=== PATIENT | male | born 1950 | race African-American/Black ===

== ENCOUNTER 2018-09-18 08:20 | Day surgery (SDC) | payer BC, OTHER | END 2018-09-18 13:55 | disposition home or self-care (01) | LOC: JASU-SURG 08:20 ==

== ENCOUNTER 2018-10-02 07:55 | Day surgery (SDC) | payer BC, OTHER | END 2018-10-02 12:40 | disposition home or self-care (01) | LOC: JASU-SURG 07:55 ==

== ENCOUNTER 2020-06-08 17:58 | Inpatient (IN) | payer BC, OTHER ==
[2020-06-08] MEDS ORDERED: DEXAMETHASONE SOD PHOSPHATE 10 MG/1 ML VIAL IVPUSH ONE (19:36)
[2020-06-08] MEDS ORDERED: DEXAMETHASONE SOD PHOSPHATE 4 MG/1 ML VIAL ONE (20:49)
[2020-06-08 21:00] LABS: VENOUS BASE EXCESS 3.9 mmol/L (-2-2); VENOUS O2 SATURATION 50.9 % (70-80); VENOUS PCO2 43.6 mmHg (38-52); VENOUS PH 7.434 (7.310-7.410)
[2020-06-08 21:06] LABS: BASO % 0.4 % (0-2.0); CHLORIDE 98 mmol/L (98-107); EOS % 0.9 % (0-4.5); HEMATOCRIT 26.2 % (35.4-49); HEMOGLOBIN 8.8 GM/dL (11.7-16.9); MCH 28.8 pg (25.7-33.7); MCHC 33.8 g/dl (32.0-35.9); MEAN CELL VOLUME 85.3 fl (80-96); MEAN PLT VOLUME 8.6 fl (7.5-11.1); MONO % 8.3 % (3.8-10.2); NEUT % 77.4 % (42.8-82.8); PLATELET COUNT 479 K/MM3 (134-434); POTASSIUM 4.5 mmol/L (3.5-5.1); RBC 3.07 M/mm3 (4.00-5.60); RDW 15.2 % (11.9-15.9); SODIUM 135 mmol/L (136-145); WHITE BLOOD COUNT 7.8 K/mm3 (4.0-10.0)
[2020-06-08 21:08] LABS: CALCIUM 8.6 mg/dL (8.5-10.1)
[2020-06-08 21:10] LABS: ALBUMIN 2.8 g/dl (3.4-5.0); ANION GAP 10 MMOL/L (8-16); BLOOD UREA NITROGEN 17.7 mg/dL (7-18); CO2 27 mmol/L (21-32)
[2020-06-08 21:11] LABS: GLUCOSE,RANDOM 144 mg/dL (74-106)
[2020-06-08 21:12] LABS: BILIRUBIN,DIRECT 0.3 mg/dL (0.0-0.2); CREATININE 1.4 mg/dL (0.55-1.3); INR 1.21 (0.83-1.09); PROTHROMBIN TIME (PATIENT) 14.6 SEC (9.7-13.0); SGOT/AST 92 U/L (15-37); SGPT/ALT 94 U/L (13-61)
[2020-06-08 21:13] LABS: LDH 451 U/L (87-246)
[2020-06-08 21:15] LABS: ACTIVATED PTT 43.2 SECONDS (25.2-36.5); ALK PHOS 107 U/L (45-117); BILIRUBIN,TOTAL 0.6 mg/dL (0.2-1)
[2020-06-08] MEDS ORDERED: HEPARIN NA (PORCINE) 5,000 UNITS/ML 1ML VIAL ONE (23:00)
[2020-06-08] MEDS ORDERED: HEPARIN NA (PORCINE) 5,000 UNITS/ML 1ML VIAL SQ SCH (23:00)
[2020-06-08] MEDS ORDERED: FUROSEMIDE 40 MG/4 ML INJECTABLE VIAL IVPUSH ONE (23:04)
[2020-06-08] MEDS ORDERED: ALBUTEROL SO4 HFA INHALER IH PRN (23:09)
[2020-06-08] MEDS ORDERED: GABAPENTIN 100 MG CAPSULE PO PRN (23:16)
[2020-06-08] MEDS ORDERED: FUROSEMIDE 40 MG/4 ML INJECTABLE VIAL ONE (23:51)
[2020-06-09] MEDS ORDERED: APIXABAN 2.5 MG TABLET PO SCH (01:45)
[2020-06-09] MEDS ORDERED: hydrALAZINE HCL 50 MG TABLET (FP) PO SCH (06:00)
[2020-06-09] MEDS: INSULIN SLIDING SCALE (NOVOLOG) 1 VIAL SQ SCH ×4 (06:15→21:33)
[2020-06-09] MEDS: FUROSEMIDE 40 MG TABLET (FP) PO SCH ×2 (06:15→13:24)
[2020-06-09] MEDS ORDERED: PT OWN MED DRAWER 7, Y5N ONE (09:58)
[2020-06-09] MEDS ORDERED: AZTREONAM 1 GM VIAL (RESTRICTED TO ID) IVPB SCH (10:00)
[2020-06-09] MEDS ORDERED: DOXYCYCLINE INJECTION 100 MG in DEXTROSE 5%-WATER - 100 ML IVPB SCH (10:00)
[2020-06-09] MEDS ORDERED: AZTREONAM 2 GM in DEXTROSE 5%-WATER 100 ML IVPB SCH (10:00)
[2020-06-09] MEDS ORDERED: ASCORBIC ACID 500 MG TABLET (FP) PO SCH (10:00)
[2020-06-09] MEDS ORDERED: METOLAZONE 2.5 MG TABLET (FP) PO SCH (10:00)
[2020-06-09] MEDS: APIXABAN 2.5 MG TABLET PO SCH ×2 (10:10→21:25)
[2020-06-09] MEDS: ZINC SULFATE 220 MG CAPSULE (FP) PO SCH (10:10)
[2020-06-09] MEDS: ASPIRIN COATED 81 MG TABLET.EC PO SCH (10:10)
[2020-06-09] MEDS: LOSARTAN POTASSIUM 25 MG TABLET PO SCH (10:10)
[2020-06-09] MEDS: CHOLECALCIFEROL (VIT D3) 1,000 UNIT (25 MCG) TABLET PO SCH (10:11)
[2020-06-09 11:04] LABS: BASO % 0.6 % (0-2.0); HEMATOCRIT 29.7 % (35.4-49); HEMOGLOBIN 10.2 GM/dL (11.7-16.9); LYMPH % 11.2 % (8-40); MCH 28.9 pg (25.7-33.7); MCHC 34.2 g/dl (32.0-35.9); MEAN CELL VOLUME 84.6 fl (80-96); MEAN PLT VOLUME 8.1 fl (7.5-11.1); NEUT % 82.2 % (42.8-82.8); PLATELET COUNT 558 K/MM3 (134-434); RBC 3.51 M/mm3 (4.00-5.60); RDW 15.4 % (11.9-15.9); RETICULOCYTES 0.91 % (0.5-1.5); WHITE BLOOD COUNT 5.7 K/mm3 (4.0-10.0)
[2020-06-09] MEDS ORDERED: FAMOTIDINE 20 MG TABLET PO SCH (11:15)
[2020-06-09 11:18] LABS: POTASSIUM 4.4 mmol/L (3.5-5.1)
[2020-06-09 11:21] LABS: INR 1.47 (0.83-1.09); PROTHROMBIN TIME (PATIENT) 17.9 SEC (9.7-13.0)
[2020-06-09 11:25] LABS: ALBUMIN 2.8 g/dl (3.4-5.0)
[2020-06-09 11:26] LABS: BLOOD UREA NITROGEN 22.5 mg/dL (7-18); MAGNESIUM 1.7 mg/dL (1.8-2.4)
[2020-06-09 11:28] LABS: CREATININE 1.4 mg/dL (0.55-1.3); PHOSPHOROUS 3.8 mg/dL (2.5-4.9)
[2020-06-09 11:29] LABS: BILIRUBIN,TOTAL 0.6 mg/dL (0.2-1); TOT PROT 7.5 g/dl (6.4-8.2)
[2020-06-09] MEDS: DEXAMETHASONE SOD PHOSPHATE 4 MG/1 ML VIAL IVPUSH SCH (13:23)
[2020-06-09] MEDS ORDERED: MAGNESIUM SULF 50% (8.12 MEQ/2 ML-1 GM VIAL) IVPB ONE (13:28)
[2020-06-09] MEDS ORDERED: IRON SUCROSE INJECTION 200 MG in SODIUM CHLORIDE 90 ML IVPB ONE (13:29)
[2020-06-09] MEDS: PANTOPRAZOLE SODIUM 40 MG VIAL IVPUSH SCH (14:01)
[2020-06-09] MEDS: ASCORBIC ACID 500 MG TABLET (FP) PO SCH (21:25)
[2020-06-09] MEDS ORDERED: ATORVASTATIN CA 10 MG TABLET (FP) PO SCH (22:00)
[2020-06-09 23:26] LABS: EPI CELLS 3 /uL (0-25.1); HYALINE CASTS 0 /uL (0-3.1); URINE APPEARANCE CLEAR; URINE BACTERIA 190 /uL (0-1359); URINE BILIRUBIN NEGATIVE (NEGATIVE); URINE COLOR YELLOW; URINE GLUCOSE (UA) NEGATIVE (NEGATIVE); URINE KETONE NEGATIVE (NEGATIVE); URINE LEUK ESTERASE NEGATIVE (NEGATIVE); URINE NITRITE NEGATIVE (NEGATIVE); URINE PROTEIN 1+ (NEGATIVE); URINE RBC 5 /uL (0-23.9); URINE WBC 8 /uL (0-25.8)
[2020-06-10] MEDS: FUROSEMIDE 40 MG TABLET (FP) PO SCH ×2 (06:19→13:59)
[2020-06-10] MEDS: INSULIN SLIDING SCALE (NOVOLOG) 1 VIAL SQ SCH ×4 (06:28→21:36)
[2020-06-10 09:25] LABS: BASO % 0.2 % (0-2.0); HEMATOCRIT 29.9 % (35.4-49); HEMOGLOBIN 10.1 GM/dL (11.7-16.9); LYMPH % 17.1 % (8-40); MCH 28.6 pg (25.7-33.7); MCHC 33.7 g/dl (32.0-35.9); MEAN PLT VOLUME 8.1 fl (7.5-11.1); MONO % 8.1 % (3.8-10.2); NEUT % 74.6 % (42.8-82.8); PLATELET COUNT 682 K/MM3 (134-434); RBC 3.52 M/mm3 (4.00-5.60); RDW 15.2 % (11.9-15.9); WHITE BLOOD COUNT 8.3 K/mm3 (4.0-10.0)
[2020-06-10] MEDS: ASCORBIC ACID 500 MG TABLET (FP) PO SCH ×2 (09:31→21:37)
[2020-06-10] MEDS: LOSARTAN POTASSIUM 25 MG TABLET PO SCH (09:31)
[2020-06-10] MEDS: APIXABAN 2.5 MG TABLET PO SCH ×2 (09:32→21:37)
[2020-06-10] MEDS: DEXAMETHASONE SOD PHOSPHATE 4 MG/1 ML VIAL IVPUSH SCH (09:32)
[2020-06-10] MEDS: ASPIRIN COATED 81 MG TABLET.EC PO SCH (09:32)
[2020-06-10] MEDS: PANTOPRAZOLE SODIUM 40 MG VIAL IVPUSH SCH (09:32)
[2020-06-10] MEDS: CHOLECALCIFEROL (VIT D3) 1,000 UNIT (25 MCG) TABLET PO SCH (09:32)
[2020-06-10] MEDS: ZINC SULFATE 220 MG CAPSULE (FP) PO SCH (09:32)
[2020-06-10 09:37] LABS: POTASSIUM 3.7 mmol/L (3.5-5.1)
[2020-06-10 09:47] LABS: ALBUMIN 2.8 g/dl (3.4-5.0); BLOOD UREA NITROGEN 21.9 mg/dL (7-18); MAGNESIUM 1.9 mg/dL (1.8-2.4)
[2020-06-10 09:50] LABS: CREATININE 1.3 mg/dL (0.55-1.3); PHOSPHOROUS 3.4 mg/dL (2.5-4.9)
[2020-06-10 09:51] LABS: BILIRUBIN,TOTAL 0.4 mg/dL (0.2-1); TOT PROT 7.4 g/dl (6.4-8.2)
[2020-06-10] MEDS ORDERED: AZTREONAM 2 GM in DEXTROSE 5%-WATER 100 ML IVPB SCH (10:00)
[2020-06-10] MEDS ORDERED: PT OWN MED DRAWER 7, Y5N ONE (10:19)
[2020-06-10 15:52] VITALS: BMI 28.8
[2020-06-11] MEDS: FUROSEMIDE 40 MG TABLET (FP) PO SCH ×2 (05:34→13:52)
[2020-06-11] MEDS: INSULIN SLIDING SCALE (NOVOLOG) 1 VIAL SQ SCH ×4 (06:14→21:35)
[2020-06-11] MEDS: LOSARTAN POTASSIUM 25 MG TABLET PO SCH (09:03)
[2020-06-11] MEDS: ASCORBIC ACID 500 MG TABLET (FP) PO SCH ×2 (09:03→21:35)
[2020-06-11] MEDS: APIXABAN 2.5 MG TABLET PO SCH ×2 (09:03→21:35)
[2020-06-11] MEDS: ASPIRIN COATED 81 MG TABLET.EC PO SCH (09:03)
[2020-06-11] MEDS: ZINC SULFATE 220 MG CAPSULE (FP) PO SCH (09:03)
[2020-06-11] MEDS: CHOLECALCIFEROL (VIT D3) 1,000 UNIT (25 MCG) TABLET PO SCH (09:04)
[2020-06-11 09:19] LABS: BASO % 0.3 % (0-2.0); EOS % 0.4 % (0-4.5); HEMATOCRIT 28.8 % (35.4-49); HEMOGLOBIN 9.6 GM/dL (11.7-16.9); LYMPH % 18.8 % (8-40); MCH 28.4 pg (25.7-33.7); MCHC 33.2 g/dl (32.0-35.9); MEAN CELL VOLUME 85.6 fl (80-96); MONO % 8.6 % (3.8-10.2); NEUT % 71.9 % (42.8-82.8); PLATELET COUNT 619 K/MM3 (134-434); RBC 3.37 M/mm3 (4.00-5.60); RDW 15.2 % (11.9-15.9); WHITE BLOOD COUNT 7.4 K/mm3 (4.0-10.0)
[2020-06-11 09:54] LABS: POTASSIUM 4.1 mmol/L (3.5-5.1)
[2020-06-11 10:48] LABS: ALBUMIN 2.6 g/dl (3.4-5.0)
[2020-06-11 10:49] LABS: MAGNESIUM 1.8 mg/dL (1.8-2.4)
[2020-06-11 10:52] LABS: CREATININE 1.3 mg/dL (0.55-1.3)
[2020-06-11 10:53] LABS: BILIRUBIN,TOTAL 0.5 mg/dL (0.2-1); TOT PROT 6.9 g/dl (6.4-8.2)
[2020-06-11] MEDS: DEXAMETHASONE 4 MG TABLET (FP) PO SCH (12:02)
[2020-06-11] MEDS: SENNOSIDES 8.6MG TABLET (FP) PO SCH ×2 (12:03→21:35)
[2020-06-11] MEDS: FERROUS SO4 325 MG TABLET (FP) PO SCH (12:03)
[2020-06-11] MEDS: DOCUSATE SODIUM 100 MG CAPSULE (FP) PO SCH ×2 (13:52→21:35)
[2020-06-11] MEDS ORDERED: INSULIN (NOVOLOG) ASPART 100 UNITS/ML 10ML VIAL ONE (21:10)
[2020-06-12] MEDS: DOCUSATE SODIUM 100 MG CAPSULE (FP) PO SCH ×4 (06:30→22:15)
[2020-06-12] MEDS: FUROSEMIDE 40 MG TABLET (FP) PO SCH ×2 (06:30→14:47)
[2020-06-12] MEDS: INSULIN SLIDING SCALE (NOVOLOG) 1 VIAL SQ SCH ×4 (06:30→22:12)
[2020-06-12 09:16] LABS: BASO % 0.3 % (0-2.0); EOS % 0.2 % (0-4.5); HEMATOCRIT 28.2 % (35.4-49); HEMOGLOBIN 9.6 GM/dL (11.7-16.9); LYMPH % 20.8 % (8-40); MCH 28.9 pg (25.7-33.7); MCHC 33.9 g/dl (32.0-35.9); MEAN CELL VOLUME 85.2 fl (80-96); MEAN PLT VOLUME 8.1 fl (7.5-11.1); MONO % 8.5 % (3.8-10.2); NEUT % 70.2 % (42.8-82.8); PLATELET COUNT 617 K/MM3 (134-434); RBC 3.31 M/mm3 (4.00-5.60); RDW 15.4 % (11.9-15.9); WHITE BLOOD COUNT 8.4 K/mm3 (4.0-10.0)
[2020-06-12 09:33] LABS: POTASSIUM 4.2 mmol/L (3.5-5.1)
[2020-06-12 09:38] LABS: ALBUMIN 2.5 g/dl (3.4-5.0)
[2020-06-12 09:39] LABS: BLOOD UREA NITROGEN 25.2 mg/dL (7-18); MAGNESIUM 1.7 mg/dL (1.8-2.4)
[2020-06-12 09:42] LABS: CREATININE 1.2 mg/dL (0.55-1.3); PHOSPHOROUS 3.7 mg/dL (2.5-4.9)
[2020-06-12 09:43] LABS: BILIRUBIN,TOTAL 0.3 mg/dL (0.2-1); TOT PROT 6.7 g/dl (6.4-8.2)
[2020-06-12 09:47] LABS: CALCIUM 9.2 mg/dL (8.5-10.1)
[2020-06-12] MEDS: APIXABAN 2.5 MG TABLET PO SCH ×2 (10:23→22:12)
[2020-06-12] MEDS: FERROUS SO4 325 MG TABLET (FP) PO SCH (10:23)
[2020-06-12] MEDS: DEXAMETHASONE 4 MG TABLET (FP) PO SCH (10:24)
[2020-06-12] MEDS: CHOLECALCIFEROL (VIT D3) 1,000 UNIT (25 MCG) TABLET PO SCH (10:24)
[2020-06-12] MEDS: ASCORBIC ACID 500 MG TABLET (FP) PO SCH ×2 (10:24→22:12)
[2020-06-12] MEDS: LOSARTAN POTASSIUM 25 MG TABLET PO SCH (10:24)
[2020-06-12] MEDS: ASPIRIN COATED 81 MG TABLET.EC PO SCH (10:24)
[2020-06-12] MEDS: ZINC SULFATE 220 MG CAPSULE (FP) PO SCH (10:24)
[2020-06-12] MEDS: SENNOSIDES 8.6MG TABLET (FP) PO SCH ×2 (10:38→22:16)
[2020-06-12] MEDS ORDERED: MAGNESIUM SULF 50% (8.12 MEQ/2 ML-1 GM VIAL) IVPB ONE (11:04)
[2020-06-13] MEDS: INSULIN SLIDING SCALE (NOVOLOG) 1 VIAL SQ SCH ×2 (06:26→12:42)
[2020-06-13] MEDS: DOCUSATE SODIUM 100 MG CAPSULE (FP) PO SCH ×2 (06:26→15:07)
[2020-06-13] MEDS: FUROSEMIDE 40 MG TABLET (FP) PO SCH ×2 (06:27→15:07)
[2020-06-13] MEDS: LOSARTAN POTASSIUM 25 MG TABLET PO SCH (09:42)
[2020-06-13] MEDS: ASPIRIN COATED 81 MG TABLET.EC PO SCH (09:42)
[2020-06-13] MEDS: APIXABAN 2.5 MG TABLET PO SCH (09:42)
[2020-06-13] MEDS: SENNOSIDES 8.6MG TABLET (FP) PO SCH ×2 (09:42→10:23)
[2020-06-13] MEDS: ASCORBIC ACID 500 MG TABLET (FP) PO SCH (09:42)
[2020-06-13] MEDS: ZINC SULFATE 220 MG CAPSULE (FP) PO SCH (09:42)
[2020-06-13] MEDS: FERROUS SO4 325 MG TABLET (FP) PO SCH (09:42)
[2020-06-13] MEDS: DEXAMETHASONE 4 MG TABLET (FP) PO SCH (09:42)
[2020-06-13] MEDS: CHOLECALCIFEROL (VIT D3) 1,000 UNIT (25 MCG) TABLET PO SCH (09:43)
[2020-06-13 15:36] VITALS: BP 121/81; PULSE 94; TEMP 98.2
== END 2020-06-13 15:44 | disposition home or self-care (01) | DRG 177 ==
LOC: JER 17:58 → JERBED 21:46 → J5S 06-09 00:14
PROVIDERS: ADMIT Internal Medicine
DX: U07.1 COVID-19 (principal); J12.82 Pneumonia due to coronavirus disease 2019; J96.01 Acute respiratory failure with hypoxia; I13.0 Hypertensive heart and chronic kidney disease with heart failure and stage 1 through stage 4 chronic kidney disease, or unspecified chronic kidney disease; I50.22 Chronic systolic (congestive) heart failure; E11.22 Type 2 diabetes mellitus with diabetic chronic kidney disease; E11.40 Type 2 diabetes mellitus with diabetic neuropathy, unspecified; E78.5 Hyperlipidemia, unspecified; N40.0 Benign prostatic hyperplasia without lower urinary tract symptoms; I48.91 Unspecified atrial fibrillation; N18.31 Chronic kidney disease, stage 3a; R74.01 Elevation of levels of liver transaminase levels; Z87.891 Personal history of nicotine dependence
CPT/HCPCS: 36415; 71045-TC-FY; 80053; 81003; 82248; 82272; 82550; 82553; 82607; 82728; 82746; 82803; 82962; 83036; 83540; 83550; 83605; 83615; 83735; 83880; 84100; 84466; 84484; 85025; 85045; 85379; 85610; 85730; 86140; 86769; 87040; 87070; 87086; 87205; 87804; 87899; 93005; 93010; 94010; 94761; 97116-GP; 97161-GP; 99285-25; C9803; J1100; J1644; J1756; U0003

== ENCOUNTER 2021-08-28 22:07 | Observation (INO) | payer BC ==
[2021-08-28 22:22] VITALS: BMI 32.3
[2021-08-28 22:58] LABS: BASO % 0.8 % (0-2.0); EOS % 2.3 % (0-4.5); HEMATOCRIT 29.4 % (35.4-49); HEMOGLOBIN 9.7 GM/dL (11.7-16.9); LYMPH % 28.2 % (8-40); MCH 28.5 pg (25.7-33.7); MCHC 33.1 g/dl (32.0-35.9); MEAN CELL VOLUME 86.1 fl (80-96); MEAN PLT VOLUME 8.1 fl (7.5-11.1); MONO % 9.2 % (3.8-10.2); NEUT % 59.5 % (42.8-82.8); PLATELET COUNT 210 10^3/uL (134-434); RBC 3.41 M/mm3 (4.00-5.60); RDW 15.5 % (11.9-15.9); WHITE BLOOD COUNT 4.2 K/mm3 (4.0-10.0)
[2021-08-28 23:22] LABS: CALCIUM 9.4 mg/dL (8.5-10.1)
[2021-08-28 23:23] LABS: ALBUMIN 3.6 g/dl (3.4-5.0); BLOOD UREA NITROGEN 18.4 mg/dL (7-18)
[2021-08-28 23:26] LABS: CREATININE 1.4 mg/dL (0.55-1.3)
[2021-08-28 23:28] LABS: BILIRUBIN,TOTAL 0.2 mg/dL (0.2-1); TOT PROT 6.9 g/dl (6.4-8.2)
[2021-08-29 00:22] LABS: EPI CELLS 3 /uL (0-25.1); HYALINE CASTS 0 /uL (0-3.1); URINE APPEARANCE CLEAR; URINE BACTERIA 0 /uL (0-1359); URINE BILIRUBIN NEGATIVE (NEGATIVE); URINE COLOR YELLOW; URINE GLUCOSE (UA) NEGATIVE (NEGATIVE); URINE KETONE TRACE (NEGATIVE); URINE LEUK ESTERASE NEGATIVE (NEGATIVE); URINE NITRITE NEGATIVE (NEGATIVE); URINE PROTEIN 1+ (NEGATIVE); URINE RBC 4 /uL (0-23.9); URINE WBC 1 /uL (0-25.8)
[2021-08-29] MEDS ORDERED: SODIUM CHLORIDE 0.9% 500 ML INFUS.BAG IV ONE (00:49)
[2021-08-29] MEDS ORDERED: ACETAMINOPHEN 325 MG TABLET (FP) PO PRN (03:01)
[2021-08-29] MEDS ORDERED: POLYETHYLENE GLYCOL (HEALTHYLAX) 3350 17 GM PACKET PO PRN (03:01)
[2021-08-29] MEDS ORDERED: MELATONIN 5 MG TABLETS PO PRN (03:07)
[2021-08-29] MEDS: INSULIN SLIDING SCALE (NOVOLOG) 1 VIAL SQ SCH ×2 (07:03→11:26)
[2021-08-29 09:33] LABS: BLOOD UREA NITROGEN 17.2 mg/dL (7-18); CALCIUM 9.1 mg/dL (8.5-10.1)
[2021-08-29 09:37] LABS: CREATININE 1.2 mg/dL (0.55-1.3)
[2021-08-29] MEDS ORDERED: PATIENT'S OWN MEDICATION (NON-FORMULARY) (Mirabegron [Myrbetriq] 50 MG Tab.Er.24h) PO SCH (10:00)
[2021-08-29] MEDS ORDERED: TAMSULOSIN HCL 0.4 MG CAP PO SCH (10:00)
[2021-08-29] MEDS ORDERED: CARVEDILOL 3.125 MG TABLET (FP) PO SCH (10:00)
[2021-08-29] MEDS ORDERED: FUROSEMIDE 40 MG TABLET (FP) PO SCH (10:00)
[2021-08-29] MEDS ORDERED: LOSARTAN POTASSIUM 50 MG TABLET PO SCH (10:00)
[2021-08-29] MEDS ORDERED: MAGNESIUM SULF 50% (8.12 MEQ/2 ML-1 GM VIAL) IVPB ONE (10:25)
[2021-08-29] MEDS ORDERED: amLODIPine BESYLATE 5 MG TABLET (FP) PO SCH (10:30)
[2021-08-29 15:07] VITALS: BP 144/92; PULSE 80; TEMP 98.8
[2021-08-29] MEDS ORDERED: ATORVASTATIN CA 10 MG TABLET (FP) PO SCH (22:00)
== END 2021-08-29 17:58 | disposition home or self-care (01) ==
LOC: JER 22:07 → JERBED 08-29 01:01 → J4S 08-29 06:44
PROVIDERS: ADMIT Hospitalist; ATTEND Family Medicine
PROC: 3E033GC Introduction of Other Therapeutic Substance into Peripheral Vein, Percutaneous Approach (ICD-10-PCS; principal; 2021-08-29)
PROC: 3E0337Z Introduction of Electrolytic and Water Balance Substance into Peripheral Vein, Percutaneous Approach (ICD-10-PCS; 2021-08-29)
DX: R55 Syncope and collapse (principal); I10 Essential (primary) hypertension; E78.5 Hyperlipidemia, unspecified; I11.0 Hypertensive heart disease with heart failure; I50.9 Heart failure, unspecified; E11.9 Type 2 diabetes mellitus without complications; E78.00 Pure hypercholesterolemia, unspecified; Z95.810 Presence of automatic (implantable) cardiac defibrillator; Z86.79 Personal history of other diseases of the circulatory system; Z86.39 Personal history of other endocrine, nutritional and metabolic disease; Z88.0 Allergy status to penicillin; Z91.010 Allergy to peanuts; Z91.018 Allergy to other foods
CPT/HCPCS: 36415; 71045-TC-FY; 80048; 80053; 81003; 82962; 83735; 84484; 85025; 87086; 93005; 93010; 96374; 99285-25; C9803-CS; G0378; U0003; U0005

== ENCOUNTER 2023-01-18 11:41 | Emergency (ER) | payer BC ==
[2023-01-18 12:11] VITALS: BMI 29.5
[2023-01-18] MEDS ORDERED: LIDOCAINE 4% PATCH TP ONE ×2 (16:44→17:04)
[2023-01-18 16:53] VITALS: BP 164/105; PULSE 83; RESP 16; TEMP 99.2
[2023-01-18] MEDS: LIDOCAINE 5% TOPICAL PATCH TP ONE ×2 (16:53→17:07)
[2023-01-18] MEDS ORDERED: LIDOCAINE PATCH REMOVAL MC ONE (22:00)
== END 2023-01-18 17:08 | disposition home or self-care (01) ==
LOC: JER 11:41
DX: M54.2 Cervicalgia (principal); R20.0 Anesthesia of skin; M50.10 Cervical disc disorder with radiculopathy, unspecified cervical region
CPT/HCPCS: 72125-TC; 93005; 93010; 99284-25

== ENCOUNTER 2023-04-25 04:25 | Day surgery (SDC) | payer BC ==
[2023-04-20 16:58] VITALS: BMI 30.1
[2023-04-25] MEDS ORDERED: MIDAZOLAM HCL 2 MG/2 ML SINGLE DOSE VIAL ONE (10:48)
[2023-04-25 11:24] VITALS: PULSE 82
[2023-04-25 13:05] VITALS: BP 155/99; RESP 18; TEMP 97.8
== END 2023-04-25 13:55 | disposition home or self-care (01) ==
LOC: JASU-SURG 04:25
PROVIDERS: ATTEND Urology
PROC: 0TC18ZZ Extirpation of Matter from Left Kidney, Via Natural or Artificial Opening Endoscopic (ICD-10-PCS; principal; 2023-04-25 11:00)
DX: N20.0 Calculus of kidney (principal)
CPT/HCPCS: 82962